=== PATIENT | male | born 1985 | race Caucasian/White ===

== ENCOUNTER 2020-10-28 18:12 | Emergency (ER) | payer BC, SELFPAY ==
[2020-10-28 18:17] VITALS: BP 136/73; PULSE 125; RESP 16; TEMP 36.1; O2SAT 98
[2020-10-28 18:23] VITALS: BP 136/73; PULSE 125; RESP 16; TEMP 36.1; O2SAT 98
[2020-10-28 18:33] LABS: Basophils Percent Auto 0.4 % (0.2-1.2); Eosinophils Absolute Auto 0.1 K/mm3 (0-0.3); Eosinophils Percent Auto 1.3 % (0-4.4); Hemoglobin 15.2 g/dL (14.0-18.0); Immature Granulocyte Absolute 0.08 K/mm3 (0.00-0.031); Immature Granulocyte Percent A 0.9 % (0-0.5); Lymphocytes Absolute Auto 1.46 K/mm3 (0.9-3.2); Lymphocytes Percent Auto 15.9 % (18.3-44.2); Mean Corpuscular HGB Conc 33.8 g/dl (32-36); Mean Corpuscular Hemoglobin 28.3 pg (26-34); Mean Corpuscular Volume 83.8 fl (80-100); Mean Platelet Volume 9.2 fl (7.4-10.4); Monocytes Absolute Auto 0.6 K/mm3 (0.1-0.6); Monocytes Percent Auto 6.6 % (2.6-8.5); Neutrophils Absolute Auto 6.9 K/mm3 (1.3-6.7); Neutrophils Percent Auto 74.9 % (45.5-73.1); Platelet Count Result 266 k/mm3 (150-375); Red Blood Count 5.37 M/mm3 (4.6-6.20); Red Cell Distribution Width 12.9 % (11.5-14.5); White Blood Count 9.2 K/mm3 (4.5-10.0)
[2020-10-28 18:43] VITALS: BP 107/80; BP 109/61; BP 110/89; PULSE 122; PULSE 123; PULSE 142
[2020-10-28 18:43] LABS: Alanine Aminotransferase 39 U/L (4-50); Albumin Level 4.7 g/dL (3.5-5.1); Alkaline Phosphatase 63 U/L (38-126); Anion Gap 13 mmol/L (8-16); Aspartate Amino Transferase 29 U/L (17-59); Bilirubin,Total 0.9 mg/dL (0.2-1.3); Blood Urea Nitrogen 13 mg/dL (9-20); Calcium 9.6 mg/dL (8.4-10.2); Carbon Dioxide 23 mmol/L (22-30); Chloride 102 mmol/L (98-107); Estimated CRCL calculation 121 ml/min; Estimated Glomerular Filt Rate > 60; Glucose 206 mg/dL (75-110); Lipase 232 U/L (23-300); Sodium 138 mmol/L (137-145)
[2020-10-28 18:55] LABS: Add Urine Microscopic? YES; Appearance Urine Clear (Clear); Bilirubin Urine Negative (Negative); Blood Urine Negative (Negative); Color Urine Amber (Yellow); Glucose Urine UA 3+ mg/dL (Negative); Ketones Urine Negative (Negative); Leukocyte Esterase Ur Negative LEU/UL (Negative); Mucus Urine Few /lpf; Nitrate Urine Negative (Negative); Protein Urine 2+ mg/dL (Negative); RBC Urine 0-2 /hpf (0-2); Squamous Epithelial Cell Urine Rare /hpf (Few); Urobilinogen Urine Negative mg/dL (<2.0); WBC Urine 0-3 /hpf
[2020-10-28 18:57] LABS: Specific Grav Ur 1.038 (1.001-1.035)
[2020-10-28] MEDS: ONDANSETRON INJ 4 MG/2 ML VIAL IV PUSH (19:11)
[2020-10-28] MEDS: LACTATED RINGERS 1,000 ML 999 ML IV CONT ×2 (19:11→20:13)
--- NOTE | 2020-10-28 19:12 | PC.NURSE ---
Pt presents to ED with complaints of abdominal pain, nausea and diarrhea. Pt states she took a home med at approx 2300 and woke at approx 2am with severe abdominal pain. Pt states he was having difficulty having a bowel movement but shortly after he was experiencing persistent diarrhea. Pt currently voices that abdominal pain persists and rates it 8/10 at this time. Pt also complaining of back pain and intermittent nausea. Pt fears that pt may be experiencing pancreatitis and denies a hx of any similar episodes. Pt resting on cart in its lowest position with call button and personal items within reach. Pt advised to press call button for assistance. Will notify EDMD of pt complaint of pain.
--- NOTE | 2020-10-28 19:21 | PC.NURSE ---
EDMD notified of abdominal pain and states he will place order for bentyl.
--- NOTE | 2020-10-28 19:24 | ED.ABDPAIN ---
HPI - Abdominal Pain General Chief Complaint: Nausea/Vomiting/Diarrhea Stated Complaint: abd pain, n/v/d, back pain Time Seen by Provider: 10/28/20 18:26 Source: patient Mode of arrival: ambulatory Limitations: no limitations History of Present Illness HPI narrative: 35-year-old male History of type 2 diabetes and of having a cholecystectomy for what sounds like acalculus cholecystitis when he was in high school No covid vaccination Recently had some of his diabetes meds changed because he was running a little high sugars Today reports that about 2 AM he was having a sensation of lower abdominal fullness and being constipated and that once he initially went to the bathroom that was followed by several additional fairly profuse trips throughout the day, that mostly loose diarrheal stools, din't take anything for them though He also complains of discomfort or fullness in the left mid and lower abdomen that has persisted and some low back discomfort Does not have any dysuria frequency or hematuria, and he has not had a fever Reports that the the last time he checked his sugars they were roughly 280 postprandial and 180 fasting Appears from the record that he also has very high cholesterol on triglyceride levels, pt notes meds have been adjusted for that as well recently Related Data Home Medications Medication Instructions Recorded Confirmed colchicine 0.6 mg tablet 0.6 mg PO DAILY PRN 07/07/20 07/07/20 metformin 850 mg tablet 850 mg PO DAILY 07/07/20 07/07/20 dapagliflozin [Farxiga] mg 10/28/20 lisdexamfetamine [Vyvanse] mg 10/28/20 semaglutide [Ozempic] mg SUBCUT 10/28/20 Allergies Allergy/AdvReac Type Severity Reaction Status Date / Time No Known Allergies Allergy Mild Verified 10/28/20 18:20 Review of Systems Review of Systems: All systems reviewed & are unremarkable except as noted in HPI and below Constitutional: Constitutional: Reports no additional constitutional complaints, Denies chills, Reports fatigue, Denies fever(s) and Denies headache(s) Eyes: Eyes: Reports no additional eye complaints and Denies change in vision ENT: Denies headache(s) and Denies sore throat Cardiovascular: Cardiovascular: Denies chest pain and Denies dyspnea Respiratory: Respiratory: Denies cough and Denies dyspnea Gastrointestinal: Gastrointestinal: Reports abdominal pain, Reports constipation, Denies diarrhea, Reports nausea and Denies vomiting Genitourinary: Genitourinary: Denies dysuria and Denies urinary frequency Musculoskeletal: Musculoskeletal: Reports back pain, Denies deformity, Denies arthralgias, Denies joint swelling and Denies numbness Integumentary/Breasts: Skin/Breast: Denies rash and Denies wounds Neurologic: Denies headache(s), Denies focal weakness and Denies numbness Psychiatric: Psychiatric: Reports no additional psychiatric complaints Endocrine: Endocrine: Reports no additional endocrine complaints Hematologic/Lymphatic: Hematologic/Lymphatic: Reports no additional hematologic/lymphatic complaints Allergic/Immunologic: Allergic/Immunologic: Reports no additional allergic/immunologic complaints Exam Const: General: cooperative, no acute distress and alert Nutritional Appearance: obese Orientation/consciousness: patient oriented x3 (alert) HENMT: Head: normal to inspection, normocephalic and atraumatic Ears: external ears normal General nose exam: no epistaxis Eyes: Conjunctivae: conjunctivae normal EOM: EOMs intact bilaterally Neck: Neck: normal visual inspection, supple and no JVD Resp: Effort & Inspection: normal respiratory effort and not labored Auscultation: clear to auscultation bilaterally and other (BS =) Cardio: Rate: regular rate and tachycardic Rhythm: regular rhythm Heart sounds: no murmurs GI: GI Palp: Yes Soft to palpation, Yes Tenderness to palpation present (GI) (Mildly tender, seems to be more LLQ than RLQ), No Guarding due to palpation present (GI)
[2020-10-28] MEDS: DICYCLOMINE HCL INJ 20 MG/2 ML VIAL IM (19:26)
[2020-10-28 19:29] VITALS: BP 100/55; PULSE 105; RESP 18; TEMP 37.5; O2SAT 98
--- NOTE | 2020-10-28 19:45 | PC.NURSE ---
PO challenge in progress.
--- NOTE | 2020-10-28 19:59 | PC.NURSE ---
Pt states that he is feeling better. PO challenge completed and pt denies nausea and emesis. remains alert and oriented x4 with stable vitals and is in no obvious distress at this time. remains at bedside. Call button and personal items within reach. Pt advised to press call button for assistance.
--- NOTE | 2020-10-28 20:05 | PC.NURSE ---
EDMD notified of pt complaint of persistent back pain and no new orders given at this time.
--- NOTE | 2020-10-28 20:23 | PC.NURSE ---
IV fluids continue to infuse due to positional site. Will administer 2nd liter when completed.
--- NOTE | 2020-10-28 20:37 | PC.NURSE ---
Pt resting on cart. 1st liter of fluids complete and 2nd liter now infusing. Pt has no complaints or concerns at this time. remains at bedside and pt is alert and oriented x4 with stable vitals. Advised to press call button for assistance.
[2020-10-28 21:18] VITALS: BP 118/84; PULSE 103; RESP 18; O2SAT 99
--- NOTE | 2020-10-28 21:18 | PC.NURSE ---
EDMD presented to bedside to update pt and family on poc. All questions and concerns addressed.
== END 2020-10-28 21:46 | disposition home or self-care (01) ==
PROVIDERS: Emergency Provider Emergency Medicine; PCP Family Medicine
DX: R10.30 Lower abdominal pain, unspecified (principal); R19.7 Diarrhea, unspecified; E11.9 Type 2 diabetes mellitus without complications; E78.00 Pure hypercholesterolemia, unspecified; Z79.84 Long term (current) use of oral hypoglycemic drugs; Z79.899 Other long term (current) drug therapy
CPT/HCPCS: 36415; 80053; 81001; 83690; 85025; 96361; 96372; 96374; 99284; J0500; J2405; J7120

== ENCOUNTER → 2022-06-29 15:57 | Outpatient (CLI) | payer BC, SELFPAY ==
--- NOTE | ~2022-06-29 | XR_ITS ---
EXAMINATION: XR wrist RT min 3V DATE: 06/29/2022 16:13 INDICATION: Ulnar-sided right wrist pain TECHNIQUE: Posteroanterior, ulnar deviation, oblique, and lateral views of the right wrist were obtai bianka. COMPARISON: none FINDINGS: Alignment is normal. No fracture. Joint spaces are normal. Soft tissues are unremarkable. IMPRESSION: 1. Negative right wrist radiographs. Reviewed, dictated and finalized at location A. TECHNICIAN
== END ==
PROVIDERS: PCP Family Medicine; Visit Provider Family Medicine
DX: M25.531 Pain in right wrist (principal)
CPT/HCPCS: 73110

== ENCOUNTER 2023-10-09 12:42 | Outpatient (CLI) | payer BC, SELFPAY ==
--- NOTE | ~2023-10-09 | XR_ITS ---
EXAMINATION: XR lumbar spine min 4V DATE: 10/09/2023 13:07 INDICATION: Chronic back pain. TECHNIQUE: 5 views of lumbar spine were obtained. COMPARISON: None. FINDINGS: There is 6 degrees dextrocurvature of thoracolumbar spine. Vertebral body heights are cheng l. Intervertebral disc heights are normal. There are endplate osteophytes at multiple levels. There i s severe facet joint osteoarthritis at L5-S1. Surgical clips in the right upper quadrant are likely f rom cholecystectomy. IMPRESSION: 1. Mild lumbar spondylosis. Reviewed, dictated and finalized at location E. IMPRESSION: 1. Mild lumbar spondylosis.
== END 2023-10-09 12:43 ==
PROVIDERS: PCP Family Medicine; Visit Provider Family Medicine
DX: M43.06 Spondylolysis, lumbar region (principal); G89.29 Other chronic pain
CPT/HCPCS: 72110